=== PATIENT | male | born 1955 | race Caucasian/White ===

== ENCOUNTER → 2017-06-13 | Outpatient (CLI) | payer OTHER | LOC: BMCIMAGING 12:39 | PROVIDERS: ATTEND Urology | DX: N50.811 Right testicular pain (principal); N50.812 Left testicular pain ==

== ENCOUNTER → 2018-06-22 | Outpatient (CLI) | payer OTHER | LOC: FIMAGING 11:26 | PROVIDERS: ATTEND Orthopaedic Surgery Hand Surgery | DX: M77.11 Lateral epicondylitis, right elbow (principal); S56.511A Strain of other extensor muscle, fascia and tendon at forearm level, right arm, initial encounter ==

== ENCOUNTER → 2018-10-24 | Outpatient (CLI) | payer OTHER | LOC: FIMAGING 11:21 | PROVIDERS: ATTEND Registered Nurse | DX: R20.0 Anesthesia of skin (principal); Z95.0 Presence of cardiac pacemaker ==

== ENCOUNTER → 2018-10-31 | Day surgery (SDC) | payer OTHER ==
[~2018-10-31] MED LIST: IOPAMIDOL (ISOVUE-300) 100 ML BTL ONE
--- NOTE | 2018-10-31 12:36 | PDGENHP ---
History & Physical Chief Complaint: Left hand discoloration and change in temperature History of Present Illness: Left hand discoloration and change in temperature with sluggish subclavian flow noted by US. History of PPM originally placed 10+ years ago Relevant Physical Exam: A&Ox4, no apparent distress, lungs CTA, cardiac regular rate and rhythm, S1, S2 Cardiorespiratory Assessment: Proceed with venogram as planned for today
--- NOTE | 2018-10-31 17:07 | EPPROC ---
Electrophysiology Procedure Note: Venogram L arm and L subclavian veins. Findings: 1. 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 2. Widely patent L subclavian vein. Plan: 1. Patient to see Dr. Valerio to assess for arterial insufficiency as cause of his symptoms and slow venous flow in L UE 2. Rest and excercise SKIP prior to visit with Dr. Valerio.
== END | disposition home or self-care (01) ==
LOC: FCATH 11:36
PROVIDERS: ATTEND Internal Medicine Cardiovascular Disease
DX: M79.622 Pain in left upper arm (principal); R20.0 Anesthesia of skin; I47.2 Ventricular tachycardia; Z95.0 Presence of cardiac pacemaker
CPT/HCPCS: Q9967

== ENCOUNTER → 2018-12-06 | Outpatient (CLI) | payer OTHER ==
[~2018-12-06] MED LIST changes: -IOPAMIDOL (ISOVUE-300) 100 ML BTL ONE; +IOPAMIDOL (ISOVUE-370) 150 ML BTL IV ONE
== END ==
LOC: FIMAGING 11:22
PROVIDERS: ATTEND Internal Medicine Cardiovascular Disease
DX: R20.2 Paresthesia of skin (principal); R29.898 Other symptoms and signs involving the musculoskeletal system
CPT/HCPCS: 71275; Q9967; 82565-PO